=== PATIENT | female | born 1935 | race African-American/Black ===

== ENCOUNTER → 2020-04-01 | Outpatient (CLI) | payer OTHER ==
[~2020-04-01] VITALS: Ht 172.7 cm; Wt 81.7 kg
[~2020-04-01] MED LIST: ASA81BEC PO; DIOVAN 80 MG TA80 M1 PO; HAIR, SKIN AND1 EAC1 PO; METFORMIN HCL500 MG PO; NEURONTIN100 MG PO; VITAMIN C1000 MG PO; VITAMIN D325 MC1 PO; ZINC50 M2 PO
--- NOTE | 2020-04-04 12:06 | PATH ---
[facility] [address] [address] PATHOLOGY RPT PROCEDURE Name: VANESSA MAHMOOD Room #: REG [facility] M.R.#: [id number] Admission: 04/01/20 Date of : 37 Discharge: Report #: [id number] Path Case #: [id number] [facility] Accession Number: [id number] . 01 Material submitted: . PART A: cecum - CECAL POLYPS PART B: colon - ASCENDING COLON POLYP. Modifiers: ascending PART C: hepatic flexure - HEPTAIC FLEXURE POLYP PART D: splenic flexure - SPLENIC FLEXURE POLYP . 01 Clinical history: . POSITIVE COLOGUARD TEST, POLYPS . 02 Diagnosis: A. Polyp, cecal polyps, endoscopic biopsy: - Tubular adenoma. - Negative for high-grade dysplasia. . B. Polyp, ascending colon polyp, endoscopic biopsy: - Hyperplastic polyp. - Negative for dysplasia. . C. Polyp, hepatic flexure polyp, endoscopic biopsy: - Hyperplastic polyp. - Negative for dysplasia. . D. 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 . 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 02 Comment: Dr. Keyanna Yung has seen underwriting sales representative slide of part D and concurs with my diagnosis. . Findings of this case are discussed with Dr. Papo Kaur at 2:54 p.m. on 04/03/2020. . 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 02 Electronically signed: . Brittanie Espinoza MD, Pathologist NPI- [id number] [place] [address] PATHOLOGY RPT PROCEDURE Name: VANESSA MAHMOOD Room #: REG [facility] Mart#: [id number] Admission: 04/01/20 Date of : 37 Discharge: Report #: [id number] Path Case #: [id number] . 01 Gross description: . A. The specimen is received in formalin, labeled "Vanessa Mahmood", "cecal polyps on the requisition and cecal polyp on the container". Received are 2 segments of pale rubi soft tissue measuring 0.2 and 0.3 cm. The specimen is entirely submitted in cassette A1. . B. The specimen is received in formalin, labeled "Patti, Vanessa", "ascending colon polyp". Received are 2 segments of pale rubi soft tissue measuring 0.2 and 0.4 cm. The specimen is entirely submitted in cassette B1. . C. The specimen is received in formalin, labeled "[place], Vanessa", "hepatic flexure polyp". Received is a single polypoid segment of pale rubi soft tissue measuring 0.5 cm. The specimen is entirely submitted in cassette C1. . D. The specimen is received in formalin, labeled "Patti, Vanessa", "splenic flexure polyp". Received are multiple polypoid fragments of pale rubi-dark brown soft tissue, measuring 1.5 x 1.5 x 0.2 cm in aggregate dimensions. The specimen is filtered and entirely submitted in cassette D1.([facility]; 04/02/2020) DESMOND/NANETTE 04/02/2020 1555 Local . 02 Pathologist provided ICD-10: D12.0, K63.5, C18.5, D12.3 . 02 CPT . 727908, 870967, 133461, 920218 Specimen Comment: A courtesy copy of this report has been sent to [phone] Specimen Comment: [phone] Specimen Comment: Report sent to / DR DAVIS Performed at: [address], [place] [id number] MD Jag Núñez MD Phone: [phone] Performed at: [address] [id number] MD Brittanie Espinoza MD Phone: [phone]
== END | disposition home or self-care (01) ==
LOC: GI 07:25
PROVIDERS: ATTEND Internal Medicine Gastroenterology
DX: R19.5 Other fecal abnormalities (principal); C18.5 Malignant neoplasm of splenic flexure; D12.0 Benign neoplasm of cecum; K62.5 Hemorrhage of anus and rectum; K57.30 Diverticulosis of large intestine without perforation or abscess without bleeding; K64.8 Other hemorrhoids; I10 Essential (primary) hypertension; E11.9 Type 2 diabetes mellitus without complications; Z98.890 Other specified postprocedural states; Z85.43 Personal history of malignant neoplasm of ovary; Z79.899 Other long term (current) drug therapy; Z90.711 Acquired absence of uterus with remaining cervical stump
CPT/HCPCS: 62110; 62900

== ENCOUNTER 2020-04-30 15:18 | Emergency (ER) | payer OTHER ==
[~2020-04-30] VITALS: Ht 162.6 cm; Wt 65.8 kg
--- NOTE | ~2020-04-30 | EMS ---
[place] [address] EMS Patient Care Report Name: VANESSA MAHMOOD Room #: PRE M.R.#: [id number] Admission: Attend Phys: Discharge: Date of : 37 Report #: [id number] THIS REPORT FOR: //name// Report Transmitted: 04/30/2020 14:54 EMS Care Summary [place], [place]/[facility] Incident [phone] @ 04/30/2020 14:45 Incident Location [address] [place] [address] [place] [address] Patient VANESSA MAHMOOD Female, 84 Years 1935 Patient Address [address] [place] [address] [place] [address] Patient History Diabetes,Hypertension (HTN), Patient Allergies No known allergies, Patient Medications Metformin, Chief Complaint CHEST PAIN Disposition Transported No Lights/[place] Dispatch Reason Chest Pain (Non-Traumatic) Transported To [facility] Narrative DISPATCHED EMERGENCY ON A CHEST PAIN. PUMPER 41 ON SCENE UPON ARRIVAL. 84 Y/O FEMALE SITTING ON BED APPEARING IN PAIN. GCS 15 AND A/OX4[place] [address] EMS Patient Care Report Name: VANESSA MAHMOOD Room #: PRE ER M.R.#: [id number] Admission: Attend Phys: Discharge: Date of : 37 Report #: [id number] TRANSPORTATION. PUMPER 41 OBTAINED V/S'S PRIOR TO EMS ARRIVAL. PT STATES THAT SHE HAS BEEN HAVING CHEST PAINS FOR A LONG TIME NOW AND HAS SEEN A DOCTOR FOR IT. STATES THE DOCTOR IS UNSURE OF WHAT IS CAUSING IT AND SHE IS BEING TESTED FOR CANCER. DENIES ANY NAUSEA/VOMITING CURRENTLY. SHARP PAIN AT 10 TO LEFT BREAST THAT COMES AND GOES AND STARTED THIS MORNING. STATES THAT THE PAIN IS WORSE THEN IT EVER HAS BEEN. MOVED WITHOUT INCIDENT TO AMBULANCE BY STRETCHER. PLACED ON MONITOR V/S'S OBTAINED. ASPIRIN ADMINISTERED. IV ESTABLISHED. TRANSPORTED TO [facility]. REASSESSED ENROUTE. REMAINS GCS 15 AND ALERT. V/S'S CONTINUOUSLY MONITORED ENROUTE. PAIN HAS NOW SUBSIDED AND PT DENIES ANY PAIN CURRENTLY. REPORT CALLED TO HOSPITAL. MOVED WITHOUT INCIDENT TO ER HOSPITAL BED 12. PT CARE TRANSFERRED TO ED RN. Initial Vitals @PTAP: 76,R: 18,BP: 149/112,Pain: 10/10,GCS: 15,SpO2: 97,Revised Trauma: 12, @15:11P: 66,R: 14,BP: 182/76,Pain: 0/10,GCS: 15,SpO2: 96,Revised Trauma: 12, @15:00P: 75,R: 16,Pain: 10/10,GCS: 15,SpO2: 99,CT Suspected: false @15:00P: 74,R: 16,BP: 202/132,Pain: 10/10,GCS: 15,Glucose: 84,CO: 0,SpO2: 97,Revised Trauma: 12,CT Suspected: false Assessments @14:54MENTAL:Person Oriented,Time Oriented,Place Oriented,Event Oriented,SKIN:HEENT:Head/Face: No Abnormalities,Neck/Airway: No Abnormalities,LUNG SOUNDS:General: Diarrhea,ABDOMEN:General: Diarrhea,PELVIS//GI:EXTREMITIES:Capillary Refill: Right Lower: < 2 Sec,Capillary Refill: Left Lower: < 2 Sec,Capillary Refill: Right Upper: < 2 Sec,Capillary Refill: Left Upper: < 2 Sec,Left Arm: No Abnormalities,Right Arm: No Abnormalities,Left Leg: No Abnormalities,Right Leg: No Abnormalities,PULSE:Radial: 2+ Normal,NEURO:No Abnormalities,@15:07MENTAL:No Abnormalities,SKIN:HEENT:Head/Face: No Abnormalities,Neck/Airway: No Abnormalities,LUNG SOUNDS:ABDOMEN:PELVIS//GI:EXTREMITIES:Capillary Refill: Left Upper: < 2 Sec,Capillary Refill: Right Upper: < 2 Sec,Left Arm: No Abnormalities,Right Arm: No Abnormalities,PULSE:Radial: 2+ Normal,NEURO: Impression Chest Pain / Discomfort Procedures @14:54ALS AssessmentResponse: UnchangedSucceeded@15:0012-Lead ECGResponse: UnchangedSucceeded@14:583-Lead ECGResponse: UnchangedSucceeded@14:58Aspirin - 324 Milligrams (mg) - OralResponse: Improved@15:05Saline Lock 10cc (20 ga) Site: Hand-RightResponse: UnchangedSucceeded@14:55StretcherResponse: Unchanged Timeline ARMATURE CONNECTOR,BP: 149/112 M,PULSE: 76,RR: 18 R,SPO2: 97 Ox,ETCO2: ,BG: ,PAIN: 10,GCS: 15, 14:44,Call Received 14:44,Dispatch Notified [facility] [address] [place] [address] EMS Patient Care Report Name: VANESSA MAHMOOD Room #: PRE ER M.R.#: [id number] Admission: Attend Phys: Discharge: Date of : 37 Report #: [id number] 14:45,Dispatched 14:46,En Route 14:52,On Scene 14:54,At Patient 14:54,ALS Assessment,Response: UnchangedSucceeded, 14:55,Stretcher,Response: Unchanged 14:58,3-Lead ECG,Response: UnchangedSucceeded, 14:58,Aspirin - 324 Milligrams (mg) - Oral,Response: Improved 15:00,BP: 202/132 M,PULSE: 74,RR: 16 R,SPO2: 97 Ox,ETCO2: ,B,PAIN: 10,GCS: 15, 15:00,12-Lead ECG,Response: UnchangedSucceeded, 15:00,BP: / M,PULSE: 75,RR: 16 R,SPO2: 99 Ox,ETCO2: ,BG: ,PAIN: 10,GCS: 15, 15:05,Saline Lock 10cc 20 ga Site: Hand-Right,Response: UnchangedSucceeded, 15:05,Depart Scene 15:11,BP: 182/76 M,PULSE: 66,RR: 14 R,SPO2: 96 Ox,ETCO2: ,BG: ,PAIN: 0,GCS: 15, 15:15,At Destination 15:32,Call Closed Disclaimer v1.1 Copyright 2020 [employer] This EMS Care Summary contains data elements from the applicable legal record (which may be displayed differently). It is designed to provide pertinent information for the following purposes: continuity of care, clinical quality, and state data reporting. The complete legal record is available to ED staff and administrators of the receiving hospital in [employer]'s Patient Tracker. All data is provided "as is."
[2020-04-30 15:44] LABS: ABSOLUTE NEUTROPHILS 3.3 thou/uL (1.4-8.2); BASOPHILS 0.7 % (0.0-2.0); EOSINOPHILS 2.5 % (0.0-3.0); HEMATOCRIT 36.2 % (37.0-47.0); HEMOGLOBIN 11.8 gm/dL (12.0-15.0); LYMPHOCYTES 34.6 % (24.0-44.0); MCH 29.8 pg (26.0-34.0); MCHC 32.7 g/dL (28.0-37.0); MCV 91.3 fL (80.0-100.0); MONOCYTES 7.9 % (1.0-8.0); PLATELET COUNT 130 thou/uL (150-400); POLYS 54.3 % (36.0-66.0); RBC 3.96 mil/uL (4.20-5.00); RDW 13.9 % (10.5-14.5); WBC 6.1 thou/uL (4.0-11.0)
[2020-04-30 15:55] LABS: ANION GAP 9 mmol/L (7-16); BUN 15 mg/dL (7-18); CALCIUM 9.3 mg/dL (8.5-10.1); CHLORIDE 105 mmol/L (98-107); CO2 28 mmol/L (21-32); CREATININE 0.9 mg/dL (0.6-1.0); GLUCOSE 97 mg/dL (74-106); POTASSIUM 3.9 mmol/L (3.5-5.1); SODIUM 142 mmol/L (136-145)
[2020-04-30 16:03] LABS: TROPONIN-I <0.06 ng/mL (<0.06)
[2020-04-30 16:38] VITALS: BP 155/65
--- NOTE | 2020-05-01 07:18 | EKG ---
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 : 1935 Requested By: Michael Hobbs Order Number: [id number] MD: Corby Holley Measurements Intervals [place] Rate: 60 P: 57 RI: 148 QRS: 70 QRSD: 84 T: 21 QT: 426 QTc: 426 Interpretive Statements Sinus rhythm Probable left atrial enlargement Low voltage, precordial leads No previous ECG available for comparison Electronically Signed On 05-01-2020 7:18:23 [employer] WORK[employer] by Corby Holley [email or web address] <ELECTRONICALLY SIGNED> By: Corby Holley MD, [facility] 05/01/20 0718 1530 1530 Corby Holley MD, FACC /EPI
== END 2020-04-30 16:58 | disposition home or self-care (01) ==
LOC: ER 15:18
PROVIDERS: Nurse Practitioner
DX: S29.012A Strain of muscle and tendon of back wall of thorax, initial encounter (principal); E11.9 Type 2 diabetes mellitus without complications; I10 Essential (primary) hypertension; Z79.82 Long term (current) use of aspirin; Z79.899 Other long term (current) drug therapy; X58.XXXA Exposure to other specified factors, initial encounter; Y93.89 Activity, other specified; Y92.89 Other specified places as the place of occurrence of the external cause; Y99.9 Unspecified external cause status

== ENCOUNTER → 2020-05-23 | Outpatient (CLI) | payer OTHER | LOC: SJCVCIMAG 07:44 | PROVIDERS: ATTEND Internal Medicine Cardiovascular Disease | DX: I08.1 Rheumatic disorders of both mitral and tricuspid valves (principal); I49.3 Ventricular premature depolarization; I11.9 Hypertensive heart disease without heart failure; E11.9 Type 2 diabetes mellitus without complications; E78.00 Pure hypercholesterolemia, unspecified; E78.5 Hyperlipidemia, unspecified; Z90.710 Acquired absence of both cervix and uterus; Z88.8 Allergy status to other drugs, medicaments and biological substances; Z79.82 Long term (current) use of aspirin; Z79.899 Other long term (current) drug therapy; Z82.49 Family history of ischemic heart disease and other diseases of the circulatory system ==